=== PATIENT | female | born 1990 ===

== ENCOUNTER 2018-02-16 08:31 | Outpatient (CLI) | payer OTHER | END 2018-02-16 08:58 | disposition home or self-care (01) | LOC: RAD 08:31 | DX: M25.562 Pain in left knee (principal); M25.561 Pain in right knee ==

== ENCOUNTER 2018-03-07 11:49 | Outpatient (CLI) | payer OTHER | END 2018-03-07 12:11 | disposition home or self-care (01) | LOC: RAD 11:49 | DX: M54.6 Pain in thoracic spine (principal); M54.2 Cervicalgia; M54.5 Low back pain ==

== ENCOUNTER 2019-03-01 17:11 | Emergency (ER) | payer OTHER ==
[~2019-03-01] VITALS: Ht 162.6 cm; Wt 62.6 kg
== END 2019-03-01 21:08 | disposition home or self-care (01) ==
LOC: ER 17:11
DX: J11.1 Influenza due to unidentified influenza virus with other respiratory manifestations (principal); B96.0 Mycoplasma pneumoniae [M. pneumoniae] as the cause of diseases classified elsewhere